=== PATIENT | female | born 1990 | race African-American/Black ===

== ENCOUNTER 2019-04-18 00:48 | Emergency (ER) | payer OTHER ==
[2019-04-18 02:40] VITALS: BP 118/78; PULSE 74; TEMP 98.1; BMI 30.4
--- NOTE | 2019-04-18 02:51 | PDOC ---
Attending Attestation - Resident Resident Name: RmToby - ED Attending Attestation I have performed the following: I have examined & evaluated the patient, The case was reviewed & discussed with the resident, I agree w/resident's findings & plan - HPI HPI: 04/18/19 04:36 see resident hpi - Physicial Exam PE: 04/18/19 04:36 agree with resident exam - Medical Decision Making 04/18/19 04:36 28-year-old female with an episode of right-sided pelvic/lower abdominal pain Patient pain-free on reevaluation Labs show no significant abnormality Patient advised to follow-up with [facility] promptly due to cervical finding on physical exam Otherwise patient has no fever, no elevated white blood cell count and no further right lower quadrant tenderness Patient also covered for gonorrhea and chlamydia as she had unprotected intercourse several weeks ago and has since had BV and a yeast infection. Patient DC'd with prompt [facility] follow-up advised 04/18/19 04:37
[2019-04-18 03:33] LABS: URINE APPEARANCE CLEAR; URINE BILIRUBIN NEGATIVE (NEGATIVE); URINE COLOR YELLOW; URINE GLUCOSE (UA) NEGATIVE (NEGATIVE); URINE KETONE NEGATIVE (NEGATIVE); URINE LEUK ESTERASE NEGATIVE (NEGATIVE); URINE NITRITE NEGATIVE (NEGATIVE); URINE PROTEIN NEGATIVE (NEGATIVE)
[2019-04-18 03:53] LABS: BASO % 0.3 % (0-2.0); EOS % 1.6 % (0-4.5); HEMATOCRIT 42.4 % (32.4-45.2); HEMOGLOBIN 13.7 GM/dL (10.7-15.3); MCH 30.5 pg (25.7-33.7); MCHC 32.4 g/dl (32.0-36.0); MEAN CELL VOLUME 94.1 fl (80-96); MEAN PLT VOLUME 9.4 fl (7.5-11.1); MONO % 7.1 % (3.8-10.2); PLATELET COUNT 284 K/MM3 (134-434); RDW 12.7 % (11.6-15.6); WHITE BLOOD COUNT 9.6 K/mm3 (4.0-10.0)
[2019-04-18] MEDS ORDERED: AZITHROMYCIN 500 MG TABLET PO ONE (03:54)
--- NOTE | 2019-04-18 03:54 | PDOC ---
History of Present Illness - General Chief Complaint: Pain Stated Complaint: SHARP STOMACH PAIN Time Seen by Provider: 04/18/19 02:46 History Source: Patient Exam Limitations: No Limitations - History of Present Illness Initial Comments: HPI: 28 y/o female presenting to [facility] complaining of left lower quadrant versus left pelvic pain for the past three days. Symptoms started on Wednesday while having intercourse. Pain is described as sharp and intermittent in nature. Feels it when she coughs. Denies urinary symptoms, vaginal bleeding, or vaginal discharge. No h/o similar symptoms. Tolerating PO. Recently treated for BV. H/o abnormal PAP smear 6 months ago but pt did not follow up for further evaluation. OBGYN Hx: - LMP Apr 07, 2019, described as normal - Last PAP Smear 6 months ago, abnormal - H/o BV Medical Hx: - Pt denies past medical history. Denies prescription medications. Surgical Hx: - Pt denies past surgical history. Review of Systems: In addition to that documented in the HPI above, the additional ROS was obtained : Constitutional- Denies fevers or chills Head- Denies vision changes ENMT- Denies sore throat CV- Denies chest pain Resp- Denies SOB GI- Denies vomiting or diarrhea - Denies painful urination, hematuria, or increased frequency MSK- Denies recent trauma Skin- Denies new rashes Neuro- Denies new numbness or tingling or weakness Endocrine- Denies polyuria Heme- Denies bleeding or bruising Physical Examination: Constitutional- Well-developed, well-nourished adult female in no acute distress or obvious discomfort. Found sitting in hospital chair next to bed. Answered all questions appropriately and completely. Head- Normocephalic. No obvious external signs of trauma. Cardiovascular / Chest- Regular rate and regular rhythm. No murmur, rubs, clicks , or gallops. Peripheral pulses- radial pulses full. Respiratory- Breathing unlabored. Equal chest rise and fall. Clear to auscultation bilaterally. No stridor, no wheezing, no rhonchi. Gastrointestinal- abdomen is soft, non-tender, non-distended. No rebound or guarding. Neuro- Alert and oriented x4. Moving all four extremities spontaneously. Gait normal. Skin- Warm, dry, and intact. - No R or L CVA tenderness. Psych- Affect- appropriate. Mood- normal. Speech was non-labored, non- pressured. Female Pelvic: External genitalia unremarkable. Speculum exam revealed clear and whitish vaginal discharge. Vaginal wall mucosa is unremarkable. Cervix visualized with area of erythema at 4 o'clock. Bimanual exam revealed right adnexal tenderness without rebound or guarding. No cervical motion tenderness. No masses appreciated. RN chaperoned exam. MDM: *Reviewed vital signs, nursing notes, and prior visit documentation (if available). 28 y/o female presenting with three days of right lower pelvic versus RLQ abdominal pain. Associated with dyspareunia. Afebrile. Vitals unremarkable for hypotension or tachycardia. Physical exam as described above. Suspect likely uterine fibroid. Pt reports she was recently taken off the Depo shot and her recent periods have been more heavy than previous. Treated with Zythromycin and Rocephin for gonorrhea / chlamydia given vaginal discharge noted on pelvic exam. Confirmatory urine test sent. Call back reminder placed. Low suspicion for appendicitis or serious bacterial infection without fever, vital sign derangement, or leukocytosis. Discussed area of concern on cervical exam with pt. Strongly encouraged close OBGYN f/u for both pain and for additional cervical exam. Discussed lab results with pt . Answered all questions. Provided return precautions. Pt expressed verbal understanding and agreement with plan to discharge home with outpatient follow up. Provided copies of todays results. Toby Rm M.D., PGY2 Emergency Medicine Resident Past History - Past Medical History Allergies/Adverse Reactions: Allergies Allergy/AdvReac Type Severity Reaction Status Date / Time No Known Allergies Allergy Verified 04/18/19 02:40 - Psycho Social/Smoking Cessation Hx Smoking History: Never smoked Hx Alcohol Use: No Drug/Substance Use Hx: No *Physical Exam - Vital Signs Last Vital Signs Temp Pulse Resp BP Pulse Ox 98.1 F 74 20 118/78 100 04/18/19 00:48 04/18/19 00:48 04/18/19 00:48 04/18/19 00:48 04/18/19 00:48 ED Treatment Course - LABORATORY CBC & Chemistry Diagram: 04/18/19 03:40 04/18/19 03:40 - ADDITIONAL ORDERS Additional order review: Laboratory Results 04/18/19 04/18/19 03:10 03:10 Urine Color Yellow Urine Appearance Clear Urine pH 6.0 Ur Specific [place] 1.028 Urine Protein Negative Urine Glucose (UA) Negative Urine Ketones Negative Urine Blood Negative Urine Nitrite Negative Urine Bilirubin Negative Urine Urobilinogen 1.0 Ur Leukocyte Esterase Negative Urine HCG, Qual Negative Discharge - Discharge Information Problems reviewed: Yes Clinical Impression/Diagnosis: Pelvic pain Condition: Good Disposition: HOME - Admission No - Follow up/Referral Referrals: Christin Garcia MD [Staff Physician] - 3 days CallBack Reminder: Urine GC/C - Patient Discharge Instructions Patient Printed Discharge Instructions: DI for Pelvic Pain Additional Instructions: You were seen today for lower right abdominal and/or pelvic pain. Your blood work and urine tests were normal. The final urine test will take approx. 2 days to complete. The hospital will call you if it is positive. You were treated presumptively for Gonorrhea and Chlamydia because of the discharge found on your pelvic exam. The hospital will call you if the test for these infections are positive. YOU NEED TO FOLLOW UP WITH YOUR OBGYN within the next 2-3 days. You have an area of redness at the 4 o'clock position on your cervix. This is concerning for something serious because of your recent abnormal PAP smear. Your symptoms are likely from a uterine fibroid. Your OBGYN will be able to help you further. You will need to call to make an appointment. The number is included in this packet. A copy of todays results are attached to this packet. Take it to the appointment so your doctor can review them. Go to the nearest emergency department if your condition worsens or you feel like you need additional emergency evaluation. Watch for worsening right lower quadrant abdominal pain, fevers, chills, nausea/vomiting. These are signs of a more serious infection. Print Language: JORDANIAN - Post Discharge Activity Work/Back to School Note: Back to Work
[2019-04-18] MEDS ORDERED: cefTRIAXone SODIUM 1 GM VIAL ONE (04:15)
[2019-04-18] MEDS ORDERED: AZITHROMYCIN 250 MG TABLET ONE (04:15)
[2019-04-18 04:18] LABS: ALBUMIN 3.9 g/dl (3.4-5.0); BILIRUBIN,TOTAL 0.6 mg/dL (0.2-1); BLOOD UREA NITROGEN 13.4 mg/dL (7-18); CALCIUM 9.2 mg/dL (8.5-10.1); POTASSIUM 4.2 mmol/L (3.5-5.1); TOT PROT 7.6 g/dl (6.4-8.2)
[2019-04-18] MEDS ORDERED: LIDOCAINE HCL 1%, 10 MG/ML (20ML VIAL) ONE (04:18)
== END 2019-04-18 05:12 | disposition home or self-care (01) ==
LOC: JER 00:48
DX: R10.2 Pelvic and perineal pain (principal); Z87.42 Personal history of other diseases of the female genital tract
CPT/HCPCS: 36415; 80053; 81003; 83690; 84703; 85025; 87077; 87086; 87491; 87591; 87661; 99282-25